=== PATIENT | male | born 1965 | race Caucasian/White ===

== ENCOUNTER 2019-08-02 12:43 | Emergency (ER) | payer SELFPAY ==
[~2019-08-02] VITALS: Ht 182.9 cm; Wt 109.1 kg
[~2019-08-02 12:43] MED LIST: PRIMATENE0.22 MG/AC IH
[2019-08-02 13:00] VITALS: TEMP 96.2
[2019-08-02 13:38] LABS: BASO # 0.1 (0.0-0.2); BASO % 0.7 % (0.0-2.0); EOS # 0.3 (0.0-0.7); EOS % 2.3 % (0-4.0); GRAN # 8.1 (1.4-6.5); GRAN % 65.3 % (42.2-75.2); HEMATOCRIT 45.3 % (42.0-52.0); LYMPH # 3.1 (1.2-3.4); LYMPH % 24.9 % (20.0-51.0); MEAN CELL VOLUME 89 fl (80.0-100.0); MEAN CORPUSCULAR HEMOGLOBIN 29 pg (27.0-31.0); MEAN CORPUSCULAR HGB CONC 33 g/dl (33.0-37.0); MEAN PLATELET VOLUME 9.8 fl (7.4-10.4); MONO # 0.8 (0.1-0.6); MONO % 6.4 % (1.7-9.3); PLATELET COUNT 388 K/mm3 (130-400); REDCELL DISTRIBUTION WIDTH-CV 12.7 % (11.5-14.5)
[2019-08-02 13:51] LABS: ALANINE AMINOTRANSFERASE 13 U/L (21-72); ALBUMIN 4.9 gm/dL (3.5-5.0); ALKALINE PHOSPHATASE 96 U/L (50-136); ANION GAP 12 mmol/L (7-16); AST,SGOT 16 U/L (15-37); BILIRUBIN,TOTAL 1.2 mg/dL (0.0-1.0); BLOOD UREA NITROGEN 13 mg/dL (9-20); C-REACTIVE PROTEIN 1.6 mg/dL (0.0-0.9); CALCIUM 9.9 mg/dL (8.4-10.2); CARBON DIOXIDE 29 mmol/L (22-30); CHLORIDE 98 mmol/L (98-107); CREATININE, serum 0.88 (0.66-1.25); GLUCOSE 180 mg/dL (74-106); POTASSIUM 4.7 mmol/L (3.4-5.0); SODIUM 139 mmol/L (137-145)
[2019-08-02 14:00] LABS: TROPONIN-I < 0.012 ng/mL (0.000-0.035)
[2019-08-02] MEDS ORDERED: PREDNISONE20 MG PO (14:49)
[2019-08-02] MEDS ORDERED: ZITHROMAX Z PA250 MG PO (14:49)
[2019-08-02 15:28] VITALS: BP 141/81; PULSE 98
== END 2019-08-02 15:30 | disposition home or self-care (01) ==
LOC: COL.ER 12:43
PROVIDERS: Physician Assistant
DX: R06.02 Shortness of breath (principal); R06.00 Dyspnea, unspecified; Z87.09 Personal history of other diseases of the respiratory system
CPT/HCPCS: J7030; J7512